=== PATIENT | male | born 1980 | race Caucasian/White ===

== ENCOUNTER 2016-10-02 11:40 | Emergency (ER) | payer OTHER ==
[~2016-10-02] VITALS: Ht 190.5 cm; Wt 90.7 kg
[2016-10-02 11:49] VITALS: BP 149/77; PULSE 93; RESP 18; O2SAT 98
[2016-10-02 12:18] VITALS: BP 138/75; PULSE 88; RESP 18; TEMP 97.7; O2SAT 100
== END 2016-10-02 12:17 | disposition home or self-care (01) ==
LOC: SED 11:40
DX: K64.5 Perianal venous thrombosis (principal)
CPT/HCPCS: 99283